=== PATIENT | female | born 1995 | race Two or more races ===

== ENCOUNTER 2022-07-19 13:17 | Emergency (ER) | payer BC ==
[~2022-07-19] VITALS: Ht 167.6 cm; Wt 59.0 kg
[2022-07-19 13:38] VITALS: BP 118/76
== END 2022-07-19 14:53 | disposition home or self-care (01) ==
LOC: ER 13:17
DX: S93.402A Sprain of unspecified ligament of left ankle, initial encounter (principal); W18.39XA Other fall on same level, initial encounter; Y93.89 Activity, other specified; Y92.89 Other specified places as the place of occurrence of the external cause; Y99.8 Other external cause status; J45.909 Unspecified asthma, uncomplicated
CPT/HCPCS: 73610; 99283; Z7610